=== PATIENT | female | born 2000 | race Two or more races ===

== ENCOUNTER 2024-06-22 12:49 | Emergency (ER) | payer OTHER ==
[~2024-06-22] VITALS: Ht 160 cm; Wt 86.2 kg
[2024-06-22] MEDS ORDERED: PRENA1 TRUE CO1 EACH (13:39)
[2024-06-22] MEDS ORDERED: ACETAMINOPHEN 500 MG GEL..CAP PO STA (14:40)
[2024-06-22] MEDS ORDERED: ELVITEG/COB/EMTRI/TENOFO DISOP 1 UDTAB TABLET PO ONE (14:45)
== END 2024-06-22 14:52 | disposition home or self-care (01) ==
LOC: ER 12:51
DX: S69.80XA Other specified injuries of unspecified wrist, hand and finger(s), initial encounter (principal); W46.0XXA Contact with hypodermic needle, initial encounter; Y93.89 Activity, other specified; Y92.69 Other specified industrial and construction area as the place of occurrence of the external cause; Y99.8 Other external cause status